=== PATIENT | female | born 1940 | race Caucasian/White ===

== ENCOUNTER 2022-12-15 13:18 | Emergency (ER) | payer MEDICARE, BC ==
[~2022-12-15] VITALS: Ht 162.6 cm; Wt 59.0 kg
[2022-12-15] MEDS ORDERED: ACETAMINOPHEN 325 MG TABLET PO ONE (13:30)
[2022-12-15] MEDS ORDERED: IV NORMAL SALINE 500 ML BAG IV ONE (13:30)
[2022-12-15 14:13] LABS: BASOPHILS % (AUTO) 0.8 % (0.0-2.0); EOSINOPHILS % (AUTO) 0.8 % (0.0-7.0); HEMATOCRIT 31.4 % (31.2-41.9); HEMOGLOBIN 10.6 g/dL (10.9-14.3); LYMPHOCYTES # (AUTO) 1.1 K/uL (0.8-4.8); LYMPHOCYTES % (AUTO) 19.8 % (20.5-51.5); MEAN CORPUSCULAR HEMOGLOBIN 33.6 uug (24.7-32.8); MEAN CORPUSCULAR HGB CONC 34 g/dL (32.3-35.6); MEAN CORPUSCULAR VOLUME 99.6 fL (75.5-95.3); MONOCYTES # (AUTO) 0.3 K/uL (0.1-1.30); NEUTROPHILS # (AUTO) 4.2 K/uL (1.8-8.9); NEUTROPHILS % (AUTO) 72.6 % (38.5-71.5); PLATELET COUNT (AUTO) 524 K/uL (179-408); RED BLOOD CELL COUNT(AUTO) 3.15 MIL/uL (3.63-4.92); RED CELL DISTRIBUTION WIDTH 16.9 % (12.3-17.7); WHITE BLOOD COUNT (AUTO) 5.7 K/uL (3.8-11.8)
[2022-12-15 14:21] LABS: CALCIUM 10.3 mg/dL (8.5-10.1); CREATININE 0.8 mg/dL (0.6-1.3); POTASSIUM 3.3 mmol/L (3.5-5.1)
[2022-12-15 14:22] LABS: *BILIRUBIN,URIN NEGATIVE (NEGATIVE); *BLOOD, URINE 1+ (NEGATIVE); *CLARITY,URINE CLEAR (CLEAR); *COLOR,URINE YELLOW (YELLOW); *KETONES,URINE NEGATIVE (NEGATIVE); *PROTEIN,URINE NEGATIVE (NEGATIVE); *UROBILINOGEN,URINE 0.2 E.U./dl (NORMAL); LEUKOCYTE ESTERASE ,URINE NEGATIVE (NEGATIVE); NITRITE, URINE POSITIVE (NEGATIVE); UGLUCOSE NEGATIVE (NEGATIVE)
[2022-12-15 14:26] LABS: DIFFERENTIAL COMMENT 1
[2022-12-15] MEDS ORDERED: ACETAMINOPHEN 325 MG TABLET ONE (14:26)
[2022-12-15 14:28] LABS: BILIRUBIN,DIRECT 0.1 mg/dL (0.0-0.2); BILIRUBIN,TOTAL 0.3 mg/dL (0.2-1.0); TOTAL PROTEIN, SERUM 6.7 g/dL (6.4-8.2)
[2022-12-15 14:39] LABS: BACTERIA,URINE MANY /HPF (NONE SEEN); RBC,URINE 0-3 /HPF (0-3); SQUAMOUS EPITHELIAL CELL,UR FEW /HPF (NONE SEEN)
[2022-12-15] MEDS ORDERED: CEFTRIAXONE /D5W 50ML IVPB **ER PYXIS IV ONE (16:39)
[2022-12-15] MEDS ORDERED: CEFTRIAXONE 1 G in IV DEXTROSE 5% 50 ML IV ONE (16:45)
[2022-12-15] MEDS ORDERED: CEFD300C3 PO (16:46)
[2022-12-15] MEDS ORDERED: POLY17PO4 PO (16:46)
[2022-12-15 17:38] VITALS: BP 155/98; O2SAT 96
== END 2022-12-15 17:39 | disposition home or self-care (01) ==
LOC: ER 13:18
DX: N39.0 Urinary tract infection, site not specified (principal); R33.9 Retention of urine, unspecified; K59.00 Constipation, unspecified; E87.6 Hypokalemia; I10 Essential (primary) hypertension
CPT/HCPCS: 99285; 74176; 96365; 80076; 80048; 81001; 83690; 85025; 87040 ×2; 36415; 83605; J0696; J7040; A4663

== ENCOUNTER 2023-02-02 17:22 | Emergency (ER) | payer MEDICARE, BC ==
[~2023-02-02] VITALS: Ht 162.6 cm; Wt 59.0 kg
[~2023-02-02 17:22] MED LIST: CEFD300C3 PO; POLY17PO4 PO
[2023-02-02] MEDS ORDERED: hydrALAZINE HCL 25 MG TABLET ONE (17:51)
[2023-02-02] MEDS ORDERED: hydrALAZINE HCL 25 MG TABLET PO ONE (18:00)
[2023-02-02 18:37] LABS: *BILIRUBIN,URIN NEGATIVE (NEGATIVE); *CLARITY,URINE CLEAR (CLEAR); *COLOR,URINE YELLOW (YELLOW); *KETONES,URINE NEGATIVE (NEGATIVE); *PROTEIN,URINE 1+ (NEGATIVE); *UROBILINOGEN,URINE 0.2 E.U./dl (NORMAL); LEUKOCYTE ESTERASE ,URINE NEGATIVE (NEGATIVE); NITRITE, URINE NEGATIVE (NEGATIVE); UGLUCOSE NEGATIVE (NEGATIVE)
[2023-02-02 18:41] LABS: *BLOOD, URINE NEGATIVE (NEGATIVE); RBC,URINE 0-3 /HPF (0-3); WBC,URINE 0-3 /HPF (0-3)
[2023-02-02] MEDS ORDERED: CLONIDINE HCL 0.1 MG TABLET ONE ×2 (19:08→20:38)
[2023-02-02] MEDS ORDERED: CLONIDINE HCL 0.1 MG TABLET PO ONE ×2 (19:15→20:15)
[2023-02-02 20:46] VITALS: BP 158/104; O2SAT 98
== END 2023-02-02 20:48 | disposition home or self-care (01) ==
LOC: ER 17:24
DX: I10 Essential (primary) hypertension (principal); E78.5 Hyperlipidemia, unspecified; Z79.899 Other long term (current) drug therapy
CPT/HCPCS: 93005; A4606; A4663

== ENCOUNTER 2024-02-12 18:43 | Emergency (ER) | payer MEDICARE, BC ==
[~2024-02-12] VITALS: Ht 160 cm; Wt 52.2 kg
[2024-02-12 21:41] VITALS: BP 142/93; TEMP 98; O2SAT 99
== END 2024-02-12 21:41 | disposition home or self-care (01) ==
LOC: ER 19:03
DX: S00.83XA Contusion of other part of head, initial encounter (principal); Z86.73 Personal history of transient ischemic attack (TIA), and cerebral infarction without residual deficits; Z90.710 Acquired absence of both cervix and uterus; Z79.82 Long term (current) use of aspirin; Z88.7 Allergy status to serum and vaccine; W01.10XA Fall on same level from slipping, tripping and stumbling with subsequent striking against unspecified object, initial encounter; Y93.89 Activity, other specified; Y92.89 Other specified places as the place of occurrence of the external cause; Y99.8 Other external cause status
CPT/HCPCS: 70450; A4606; A4663